=== PATIENT | male | born 1995 | race Caucasian/White ===

== ENCOUNTER 2018-10-10 07:37 | Emergency (ER) | payer BC ==
[2018-10-10 07:59] VITALS: BP 143/86
--- NOTE | 2018-10-10 08:39 | UC ---
Dental HPI - HPI Summary HPI Summary: here for evaluation of tender large nodes in the left side of the neck, with assessment and treatment of lower left molar x 2 days ago. Had loss of filling and dental caries, no apparent abscess on xray. No fever, chills. Has hx of headache, no increase. No photophobia. - History of Current Complaint Chief Complaint: UCDentalProblem Stated Complaint: FACIAL SWELLING Time Seen by Provider: 10/10/18 08:27 Hx Obtained From: Patient Onset/Duration: Gradual Onset, Lasting Days - 5 Severity: Moderate Pain Intensity: 8 Aggravating Factor(s): Cold, Chewing Alleviating Factor(s): OTC Meds Related History: Previous Dental Care on Same Tooth - Allergies/Home Medications Allergies/Adverse Reactions: Allergies Allergy/AdvReac Type Severity Reaction Status Date / Time No Known Allergies Allergy Verified 10/10/18 07:57 Home Medications: Home Medications Ibuprofen TAB* [Motrin TAB* 400 MG] 400 mg PO Q6H PRN 10/10/18 [History Confirmed 10/10/18] PMH/Surg Hx/FS Hx/Imm Hx Previously Healthy: Yes - Trnasgender FTM, on testosterone Endocrine History: Other - testosterone supplements - Surgical History Surgical History: None - Family History Known Family History: Positive: Hypertension - father - Social History Occupation: Employed Full-time Lives: With Family Alcohol Use: None Substance Use Type: None Smoking Status (MU): Former Smoker - quit 2016 Review of Systems All Other Systems Reviewed And Are Negative: Yes Constitutional: Positive: Negative Skin: Positive: Negative Eyes: Positive: Negative ENT: Positive: Dental Pain, Other - facial pain and swelling Respiratory: Positive: Negative Cardiovascular: Positive: Other - no hx of hyptertension, attributes elevation today to pain Gastrointestinal: Positive: Negative Genitourinary: Positive: Negative Motor: Positive: Negative Neurovascular: Positive: Negative Musculoskeletal: Positive: Negative Neurological: Positive: Headache - chronic Psychological: Positive: Negative Physical Exam Triage Information Reviewed: Yes Appearance: Well-Appearing, Pain Distress - mild to moderate Vital Signs: Initial Vital Signs Temp 97.8 F 10/10/18 07:55 Pulse 102 10/10/18 07:55 Resp 17 10/10/18 07:55 BP 143/86 10/10/18 07:55 Pulse Ox 100 10/10/18 07:55 Eye Exam: Other - CHANDAN, normal eom, no photophobia ENT: Positive: Pharynx normal, TMs normal, Other - gum line looks healthy; normal ear canals. Dental Exam: Other - large left tender pre-auricular node, tender left submandibular node approx 2 cm. No apparent parotid enlargement. angle of jaw palpable. Dental: Positive: Other: - left lower molar with repair. gum line normal. Neck: Positive: Supple, Nontender Respiratory: Positive: Lungs clear, Normal breath sounds Cardiovascular: Positive: RRR, No Murmur Neurological: Positive: Alert, Muscle Tone Normal Psychological Exam: Normal Skin Exam: Normal Dental Complaint Course/Dx - Course Course Of Treatment: penicillin for likely dental infection - Differential Dx/Diagnosis Differential Diagnosis/Dx: Dental Abscess, Pharyngitis, TMJ Syndrome Provider Diagnosis: Dental abscess Discharge - Sign-Out/Discharge Documenting (check all that apply): Patient Departure All imaging exams completed and their final reports reviewed: No Studies - Discharge Plan Condition: Stable Disposition: HOME Prescriptions: Penicillin VK 500 MG TAB(NF) [Penicillin VK 500 mg Tab] 500 mg PO QID #28 tab Patient Education Materials: Dental Abscess (ED) Referrals: No Primary Care Phys,NOPCP [Primary Care Provider] - Additional Instructions: You are being treated for presumed dental abscess. If you do not see an improvement in 2 days, please follow. Increase ibuprofen to 600mg every 6 hours as needed for pain control. - Billing Disposition and Condition Condition: STABLE Disposition: Home
== END 2018-10-10 09:01 | disposition home or self-care (01) ==
LOC: UCCORT 07:37
DX: K04.7 Periapical abscess without sinus (principal); Z87.891 Personal history of nicotine dependence; Z87.890 Personal history of sex reassignment; Z79.899 Other long term (current) drug therapy
CPT/HCPCS: 99202; G0463

== ENCOUNTER 2018-10-11 14:43 | Emergency (ER) | payer BC ==
[2018-10-11 15:24] VITALS: BP 140/88
[2018-10-11] MEDS ORDERED: Ketorolac INJ* 30 MG/ML 1 ML VIAL IM ONE (16:49)
[2018-10-11] MEDS ORDERED: Lidocaine 2% VISCOUS* 15 ML UDC SWISH SPIT ONE (16:49)
--- NOTE | 2018-10-11 16:51 | UC ---
Dental HPI - HPI Summary HPI Summary: 22 y/o female presents to the urgent care c/o persistent dental pain in the left lower jaw w/ swollen lymph node LF>RT for the past 5 days. Pt reports a molar filling fell form the left lower jaw. He was seen by Dentist 3 days ago and had a repair done. However he thinks it was not done well since he developed fever ans swelling increase. he was seen yesterday at the [facility] care at [place] and Rx Penicillin. However pain has been persistent and he can eat well. Pain is 9/10 He took Tylenol PO around 1400pm. He has nausea last night due to pain. Pt denies trismus, SOB, DOUGLAS, dizziness, chest pain, abdominal pain, V/D. - History of Current Complaint Chief Complaint: UCDentalProblem Stated Complaint: FEVER, NAUSEA, AND SWOLLEN LYMPH NODES Time Seen by Provider: 10/11/18 16:29 Hx Obtained From: Patient Onset/Duration: Gradual Onset, Lasting Days - 4 days, Still Present, Worse Since - today Severity: Severe Pain Intensity: 9 Pain Scale Used: 0-10 Numeric Aggravating Factor(s): Chewing Alleviating Factor(s): Other (see comments) - Penicillin PO Related History: Swelling - Allergies/Home Medications Allergies/Adverse Reactions: Allergies Allergy/AdvReac Type Severity Reaction Status Date / Time No Known Allergies Allergy Verified 10/11/18 15:25 Home Medications: Home Medications Acetaminophen TAB* [Tylenol TAB*] 975 mg PO Q6HR 10/11/18 [History Confirmed ] PMH/Surg Hx/FS Hx/Imm Hx Previously Healthy: Yes - Pt denies PMHX - Surgical History Surgical History: None - Family History Known Family History: Positive: Hypertension - father - Social History Alcohol Use: None Substance Use Type: None Smoking Status (MU): Former Smoker Review of Systems All Other Systems Reviewed And Are Negative: Yes Constitutional: Positive: Fever - low grade at home Skin: Positive: Negative Eyes: Positive: Negative ENT: Positive: Dental Pain - left lower jaw with swollen painful lymphnodes Respiratory: Positive: Negative Cardiovascular: Positive: Negative Gastrointestinal: Positive: Negative Genitourinary: Positive: Negative Motor: Positive: Negative Neurovascular: Positive: Negative Musculoskeletal: Positive: Negative Neurological: Positive: Negative Psychological: Positive: Negative Is Patient Immunocompromised?: No Physical Exam - Summary Physical Exam Summary: Vital Signs Reviewed: Yes General: Well-Appearing, Well-Nourished male sitting in the examining table w/ o any respiratory or pain distress Eyes: Positive: Conjunctiva Clear - PERRLA, EOMI, ENT: Positive: Normal ENT inspection, Hearing grossly normal, Pharynx normal, TMs normal - B/L external ear canals clear,. Negative: Tonsillar swelling, Tonsillar exudate, Trismus Dental: Positive: fracture molar #17, w/ a recent filling placed. possible Abscess: w/ gingival swelling and erythema, tender to percussion. involves tissue surrounding same molar, Anterior Cervical Lymphadenopathy RT>LF anterior. Neck: Positive: Supple Respiratory: Positive: Chest non-tender, Lungs clear, Normal breath sounds, No respiratory distress Cardiovascular: Positive: RRR, No Murmur, Pulses Normal, Brisk Capillary Refill Abdomen Description: Positive: Nontender, No Organomegaly, Soft. Negative: CVA Tenderness (R), CVA Tenderness (L) Bowel Sounds: Positive: Present Musculoskeletal: Positive: Strength Intact, ROM Intact, No Edema Neurological Exam: Normal Psychological Exam: Normal Skin Exam: Normal Triage Information Reviewed: Yes Vital Signs: Initial Vital Signs Temp 98.5 F 10/11/18 15:20 Pulse 94 10/11/18 15:20 Resp 16 10/11/18 15:20 BP 140/88 10/11/18 15:20 Pulse Ox 100 10/11/18 15:20 Dental Complaint Course/Dx - Course Course Of Treatment: 22 y/o female presents to the urgent care c/o persistent dental pain in the left lower jaw w/ swollen lymph node LF>RT for the past 5 days. Pt reports a molar filling fell form the left lower jaw. He was seen by Dentist 3 days ago and had a repair done. However he thinks it was not done well since he developed fever ans swelling increase. he was seen yesterday at the [facility] care at [place] and Rx Penicillin. However pain has been persistent and he can eat well. Pain is 9/10 He took Tylenol PO around 1400pm. He has nausea last night due to pain. Pt denies trismus, SOB, DOUGLAS, dizziness, chest pain, abdominal pain, V/D. Hx obtained. Pt w/fracture molar #17, w/ a recent filling placed. possible Abscess: w/ gingival swelling and erythema, tender to percussion. involves tissue surrounding same molar, Anterior Cervical Lymphadenopathy RT>LF anterior on examination. Pt given viscous Lidocaine and Toradol IM inj at the clinic by the nurse to alleviate symptoms. Pt advised to finished Penicillin PO, full course of antibiotic and Rx Ibuprofen PO to start tomorrow. Pt strongly advised to return to his Dentist as soon as possible further evaluation and treatment. Pt understood and agreed with plan of care. Left the clinic ambulating and feeling better. - Differential Dx/Diagnosis Differential Diagnosis/Dx: Dental Abscess, Dental Caries, Fractured Tooth, Gingivitis, Odontogenic Pain, Peridontic Disease, Post Extraction Pain, TMJ Syndrome, Tonsillitis Provider Diagnosis: Dental abscess, Tooth ache, Elevated BP without diagnosis of hypertension Discharge - Sign-Out/Discharge Documenting (check all that apply): Patient Departure - D/C home All imaging exams completed and their final reports reviewed: No Studies - Discharge Plan Condition: Stable Disposition: HOME Prescriptions: Ibuprofen TAB* [Motrin TAB* 600 MG] 600 mg PO Q6H PRN #30 tab PRN Reason: dental pain Lidocaine 2% VISCOUS* [Xylocaine 2% Viscous*] 15 ml SWISH SPIT Q6H PRN #1 btl PRN Reason: dental pain Patient Education Materials: Dental Abscess (ED) Forms: *Work Release Referrals: [facility] [Outside] - 2 Days Additional Instructions: 1-Please continue taking Penicillin PO full course of antibiotic to avoid resistance. 2- Take Ibuprofen PO q6-8hrs as instructed starting tomorrow since you were given a Toradol IM inj today after meals to alleviate pain and swelling. If pain persists you can take Tylenol instead. Also take Lidocaine PO as directed 3- F/u with your Dentist or Dental List provided as soon as possible for further treatment. 4- If symptoms do not improve or worsen f/u with your PCP for further evaluation and treatment, specially if the lymph node is not resolving 5- Your BP is elevated today. please decrease salt in your diet, monitor BP and if it continues to be elevated please f/u with your PCP for further management. - Billing Disposition and Condition Condition: STABLE Disposition: Home
== END 2018-10-11 17:48 | disposition home or self-care (01) ==
LOC: UCEAST 14:43
DX: K04.7 Periapical abscess without sinus (principal); K08.89 Other specified disorders of teeth and supporting structures; R03.0 Elevated blood-pressure reading, without diagnosis of hypertension; R11.0 Nausea; Z87.891 Personal history of nicotine dependence
CPT/HCPCS: 96372; 99212; G0463; J1885